=== PATIENT | male | born 1975 | race Caucasian/White ===

== ENCOUNTER 2019-10-27 02:13 | Outpatient (CLI) | payer BC, SELFPAY ==
--- NOTE | 2019-10-27 06:28 | DI.RAD_ITS ---
EXAM: XR HIP PELVIS ADULT BL CLINICAL HISTORY: BILAT HIP PAIN, M25.552, M25.551 TECHNIQUE: COMPARISON: No exams were available for comparison FINDINGS: Three views were obtained. There may be slight narrowing cartilaginous joint spaces of both hips sup eriorly. Minimal acetabular osteophyte formation seen laterally. The femoral heads appear intact bi laterally. No other significant bony abnormality seen. IMPRESSION: Minimal DJD both hips
--- NOTE | 2019-10-27 06:28 | DI.RAD_ITS ---
EXAM: XR KNEE RT 3V AP,LAT,NOVA CLINICAL HISTORY: RT KNEE PAIN, M25.561 TECHNIQUE: COMPARISON: No exams were available for comparison FINDINGS: Three views were obtained. No bony or soft tissue abnormality seen. IMPRESSION:
--- NOTE | 2019-10-27 06:28 | DI.RAD_ITS ---
EXAM: XR KNEE LT 3V AP,LAT,NOVA CLINICAL HISTORY: LT KNEE PAIN, M25.562 TECHNIQUE: COMPARISON: XR KNEE RT 3V AP,LAT,NOVA from 10/27/2019 FINDINGS: Three views were obtained. No bony or soft tissue abnormality seen. IMPRESSION:
== END 2019-10-27 02:33 ==
PROVIDERS: PCP Nurse Practitioner Family; Visit Provider Nurse Practitioner Family
DX: M25.552 Pain in left hip (principal); M25.551 Pain in right hip; M16.0 Bilateral primary osteoarthritis of hip; M25.562 Pain in left knee; M25.561 Pain in right knee
CPT/HCPCS: 73521; 73562

== ENCOUNTER 2019-11-07 02:34 | Outpatient (CLI) | payer BC, SELFPAY ==
[2019-11-07 07:17] LABS: Abs Immature Grans 0.01 k/cumm (0.0-0.09); Absolute Basophil Count 0.01 k/cumm (0.0-0.2); Absolute Eosinophil Count 0.14 k/cumm (0.0-0.7); Absolute Lymphocyte Count 2.92 k/cumm (1.2-3.4); Absolute Monocyte Count 0.59 k/cumm (0.11-0.7); Absolute Neutrophil Count 3.03 k/cumm (1.2-6.7); Basophils % 0.1; Eosinophils % 2.1; HCT 45.2 % (40.0-50.0); HGB 15.7 g/dL (13.5-17.5); Immature Grans % 0.1 %; Lymphocytes % 43.6; Mean Corp. HGB Concentration 34.7 g/dL (32.0-36.0); Mean Corpuscular Hemoglobin 29.8 pg (27.0-33.0); Mean Corpuscular Volume 85.8 fL (80-95); Mean Platelet Volume 9.1 fL (8.0-11.0); Monocytes % 8.8; Neutrophils % 45.3; Platelet Count 260 x1000/uL (130-400); RBC 5.27 m/cumm (4.50-6.00); RBC Distribution Width 12.8 % (11.8-14.1)
[2019-11-07 07:35] LABS: Hemoglobin A1C 5.5 % (3.8-5.6)
[2019-11-07 08:53] LABS: ALT 23 U/L (16-63); AST 14 U/L (15-37); Alkaline Phosphatase 131 U/L (46-116); Anion Gap 9.9 mmol/L (3-11); BUN 21 mg/dL (7-18); Bilirubin, Total 0.4 mg/dL (0.2-1.0); CO2 27.1 mmol/L (21.0-32.0); CREATININE 1.11 mg/dL (0.70-1.30); Calculated LDL 148 mg/dL (<100); Chloride 102 mmol/L (98-107); Cholesterol 219 mg/dL (<200); Glucose 111 mg/dL (74-106); HDL Cholesterol 42 mg/dL (40-60); Potassium 4.7 mmol/L (3.5-5.1); Sodium 139 mmol/L (136-145); TSH 2.92 uIU/mL (0.36-3.74); Total Protein 7.3 g/dL (6.4-8.2); Triglyceride 147 mg/dL (<150)
[2019-11-07 09:10] LABS: FREE T4 1.09 ng/dL (0.76-1.46)
[2019-11-09 10:21] LABS: GGT 26 U/L (15-85)
[2019-11-10 04:42] LABS: Vitamin D 25 Total 14.3 ng/ml (30-100)
== END 2019-11-07 02:54 ==
PROVIDERS: PCP Nurse Practitioner Family; Visit Provider Nurse Practitioner Family
DX: Z00.00 Encounter for general adult medical examination without abnormal findings (principal); Z13.220 Encounter for screening for lipoid disorders; Z13.1 Encounter for screening for diabetes mellitus; Z13.29 Encounter for screening for other suspected endocrine disorder; R74.8 Abnormal levels of other serum enzymes
CPT/HCPCS: 36415; 80053; 80061; 82306; 82977; 83036; 83970; 84439; 84443; 85025

== ENCOUNTER 2020-10-23 12:02 | Outpatient (REF) | payer BC, SELFPAY ==
[2020-10-24 12:42] LABS: Chlamydia Result Negative (Negative); GC Result Negative (Negative)
== END 2020-10-23 12:03 | disposition home or self-care (01) ==
LOC: LBN 12:02
PROVIDERS: Nurse Practitioner; PCP Nurse Practitioner Family; Visit Provider Nurse Practitioner Family
DX: Z11.3 Encounter for screening for infections with a predominantly sexual mode of transmission (principal)
CPT/HCPCS: 87491; 87591

== ENCOUNTER 2020-10-29 04:19 | Outpatient (CLI) | payer BC, SELFPAY ==
[2020-10-29 12:38] LABS: Abs Immature Grans 0.01 10^3/uL (0.0-0.06); Absolute Basophil Count 0.02 10^3/uL (0.0-0.2); Absolute Eosinophil Count 0.01 10^3/uL (0.0-0.7); Absolute Monocyte Count 0.37 10^3/uL (0.1-0.8); Basophils % 0.6; Eosinophils % 0.3; HCT 47.6 % (40.0-50.0); HGB 15.9 g/dL (13.5-17.5); Immature Grans % 0.3; Lymphocytes % 30.5; MCH 29.8 pg (27.0-33.0); MCHC 33.4 % (32.0-36.0); MCV 89.3 fL (80-95); MPV 9.8 fL (8.0-11.0); Monocytes % 10.2; Neutrophils % 58.1; Nucleated RBC 0 %; Platelet Count 260 10^3/uL (130-400); RBC 5.33 10^6/uL (4.36-5.78); RDW 12.6 % (11.8-14.1); WBC 3.61 10^3/uL (4.4-10.8)
[2020-10-29 13:04] LABS: ALT 33 U/L (16-63); AST 20 U/L (15-37); Albumin 4.3 g/dL (3.4-5.0); Alkaline Phosphatase 74 U/L (46-116); BUN 22 mg/dL (7-18); Bilirubin, Total 0.6 mg/dL (0.2-1.0); CREATININE 1.1 mg/dL (0.70-1.30); Calcium 9.2 mg/dL (8.5-10.1); Chloride 102 mmol/L (98-107); Glucose 116 mg/dL (74-106); Potassium 4.2 mmol/L (3.5-5.1); Sodium 142 mmol/L (136-145); TSH (W/Ref FT4) 1.13 uIU/mL (0.36-3.74); Total Protein 7.3 g/dL (6.4-8.2)
[2020-10-30 09:58] LABS: HIV-1/2 Ag & Ab Screen Negative (Negative)
[2020-10-30 11:05] LABS: Syphilis Serology (RPR) Negative (Negative)
[2020-10-30 14:54] LABS: Hepatitis Be Antigen Negative (Negative)
[2020-10-31 18:43] LABS: Calculated LDL 85 mg/dL (<100); Cholesterol 145 mg/dL (<200); HDL Cholesterol 48 mg/dL (40-60); Triglyceride 62 mg/dL (<150)
[2020-10-31 20:40] LABS: Hemoglobin A1C 5.2 % (<5.7)
[2020-11-01 04:38] LABS: Vitamin D 25 Total 63.3 ng/mL (30-100)
[2020-11-01 10:33] LABS: Hepatitis C Ab w Rflx HCV PCR Negative (Negative)
== END 2020-10-29 04:20 | disposition home or self-care (01) ==
LOC: LOS 04:20
PROVIDERS: PCP Nurse Practitioner Family; Visit Provider Nurse Practitioner
DX: R73.01 Impaired fasting glucose (principal); R63.4 Abnormal weight loss; E78.5 Hyperlipidemia, unspecified; E55.9 Vitamin D deficiency, unspecified; Z11.3 Encounter for screening for infections with a predominantly sexual mode of transmission; Z11.4 Encounter for screening for human immunodeficiency virus [HIV]; Z11.59 Encounter for screening for other viral diseases
CPT/HCPCS: 36415; 80053; 80061; 82306; 86803; 87389; 83036; 84443; 85025; 86592; 87350

== ENCOUNTER 2021-05-27 14:58 | Outpatient (REF) | payer BC, SELFPAY ==
[2021-05-27 15:54] LABS: Abs Immature Grans 0.03 10^3/uL (0.0-0.06); Absolute Basophil Count 0.02 10^3/uL (0.0-0.2); Absolute Eosinophil Count 0.08 10^3/uL (0.0-0.7); Absolute Lymphocyte Count 2.43 10^3/uL (1.2-3.4); Absolute Monocyte Count 0.49 10^3/uL (0.1-0.8); Absolute Neutrophil Count 3.74 10^3/uL (1.2-6.7); Basophils % 0.3; Eosinophils % 1.2; HCT 40.7 % (40.0-50.0); HGB 13.8 g/dL (13.5-17.5); Immature Grans % 0.4; Lymphocytes % 35.8; MCH 30.1 pg (27.0-33.0); MCHC 33.9 % (32.0-36.0); MCV 88.7 fL (80-95); MPV 8.9 fL (8.0-11.0); Monocytes % 7.2; Neutrophils % 55.1; Nucleated RBC 0 %; Platelet Count 266 10^3/uL (130-400); RBC 4.59 10^6/uL (4.36-5.78); RDW 12.5 % (11.8-14.1); RDW-SD 40.5 fL; WBC 6.79 10^3/uL (4.4-10.8)
[2021-05-27 16:12] LABS: ALT 32 U/L (16-63); AST 18 U/L (15-37); Albumin 3.7 g/dL (3.4-5.0); Alkaline Phosphatase 91 U/L (46-116); Anion Gap 6.3 mmol/L (3-11); BUN 22 mg/dL (7-18); Bilirubin, Total 0.3 mg/dL (0.2-1.0); CO2 30.7 mmol/L (21.0-32.0); Chloride 105 mmol/L (98-107); Glucose 90 mg/dL (74-106); Potassium 3.9 mmol/L (3.5-5.1); Sodium 142 mmol/L (136-145)
== END 2021-05-27 14:59 | disposition home or self-care (01) ==
LOC: LBN 14:58
PROVIDERS: PCP Nurse Practitioner Family; Visit Provider Surgery
DX: K40.90 Unilateral inguinal hernia, without obstruction or gangrene, not specified as recurrent (principal); K42.9 Umbilical hernia without obstruction or gangrene
CPT/HCPCS: 80053; 85025

== ENCOUNTER 2021-06-17 02:53 | Outpatient (CLI) | payer BC, SELFPAY ==
[2021-06-17 10:30] LABS: Source Nasal/Nares
[2021-06-17 13:55] LABS: COVID-19 PCR Negative (Negative)
== END 2021-06-17 02:54 | disposition home or self-care (01) ==
LOC: LBO 02:53
PROVIDERS: PCP Nurse Practitioner Family; Visit Provider Surgery
DX: Z20.822 Contact with and (suspected) exposure to COVID-19 (principal); Z01.818 Encounter for other preprocedural examination
CPT/HCPCS: 87635

== ENCOUNTER 2021-06-18 06:58 | Day surgery (SDC) | payer BC, SELFPAY ==
[2021-06-18] VITALS (8 sets, daily range): BP systolic 115–138; BP diastolic 66–86; PULSE 60–74; RESP 13–18; TEMP 36.2–37.2; O2SAT 96–100; BMI 24.3
--- NOTE | 2021-06-18 06:21 | W.ANESPRE ---
General Info Date of Service Date Performed: 06/18/21 Height: 5 ft 7.5 in Weight: 71.384 kg Body Mass Index (BMI): 24.3 Surgical Procedure: Operation Date: 06/18/21 08:55 Proposed Procedures Side Surgeon p small Herniorrhaphy Umbilical Repair with mesh Stormy Cortes DO s Large open Herniorrhaphy Inguinal with mesh Right Stormy Cortes DO Meds Allergies and Home Medications Allergies Allergy/AdvReac Type Severity Reaction Status Date / Time No Known Allergies Allergy Verified 06/18/21 07:15 Home Medication Medication Instructions Recorded cholecalciferol (vitamin D3) 50 2,000 unit PO DAILY #90 tab-cap 11/10/19 mcg (2,000 unit) capsule multivitamin with iron 1 tab PO DAILY 12/13/20 protein pwd PO 12/13/20 antiarthritic combination no.2 900 900 mg PO DAILY 05/27/21 mg tablet tramadol 50 mg PO Q6H PRN #14 tab 06/18/21 Current Visit Medications: Current Medications Generic Name Dose Route Start Last Admin Trade Name Freq PRN Reason Stop Dose Admin Ondansetron HCl 4 mg/ Sodium 52 mls @ 200 mls/hr 06/17/21 10:41 Chloride IVPB Q6H PRN PRN Morphine Sulfate 2 mg 06/17/21 10:41 Morphine 4 Mg/Ml Syr IVP Q1H PRN PRN Tramadol HCl 50 mg 06/17/21 10:41 Tramadol 50 Mg Tab PO Q6H PRN PRN Pain PFSH Active Problems Active Problems: Problem Status Onset Code Umbilical hernia K42.9 Reducible right inguinal hernia K40.90 Medical History Active Problem List Umbilical hernia (Chronic) Reducible right inguinal hernia (Chronic) Medical History Basal cell carcinoma (BCC) of scalp (11/2019) November 2019 s/p excision Hyperlipidemia Vitamin D insufficiency Surgical History Surgical History S/P foot surgery Clubfoot repair S/P tonsillectomy Tobacco Smoking/Tobacco Use Status: Never Passive smoking exposure: Yes Second hand exposure: Yes (as a child (to age 17)) Alcohol Alcohol Intake: current Alcohol intake frequency: a few times a month Alcohol type: beer and hard liquor Substance Use Substance use: Never Substance use type: does not use Vital Signs and Lab Results Lab Results Blood Type / Crossmatch: No Data to Display Complete Blood Count: White Blood Count 6.79 10^3/uL (4.4-10.8) 05/27/21 14:05 05/27/21 Red Blood Count 4.59 10^6/uL (4.36-5.78) 05/27/21 14:05 05/27/21 Hemoglobin 13.8 g/dL (13.5-17.5) 05/27/21 14:05 05/27/21 Hematocrit 40.7 % (40.0-50.0) 05/27/21 14:05/27/21 Platelet Count 266 10^3/uL (130-400) 05/27/21 14:05 05/27/21 Complete Metabolic Panel: Sodium Level 142 mmol/L (136-145) 05/27/21 14:05/27/21 Potassium Level 3.9 mmol/L (3.5-5.1) 05/27/21 14:05 05/27/21 Chloride Level 105 mmol/L (98-107) 05/27/21 14:05 05/27/21 Carbon Dioxide Level 30.7 mmol/L (21.0-32.0) 05/27/21 14:05 05/27/21 Blood Urea Nitrogen 22 mg/dL (7-18) H 05/27/21 14:05 05/27/21 Creatinine 1.0 mg/dL (0.70-1.30) 05/27/21 14:05 05/27/21 Estimated GFR/1.73 m2 >= 60.00 (mL/min/1.73m2) 05/27/21 14:05 05/27/21 Calcium Level 9.0 mg/dL (8.5-10.1) 05/27/21 14:05/27/21 Albumin 3.7 g/dL (3.4-5.0) 05/27/21 14:05 05/27/21 Glucose Level 90 mg/dL (74-106) 05/27/21 14:05 05/27/21 Liver Function Panel: Alanine Aminotransferase (ALT/SGPT) 32 U/L (16-63) 05/27/21 14:05 05/27/21 Aspartate Amino Transf (AST/SGOT) 18 U/L (15-37) 05/27/21 14:05 05/27/21 Coagulation Panel: No Data to Display Cardiac Panel: No Data to Display Arterial Blood Gas: No Data to Display Venous Blood Gas: No Data to Display Pancreas Panel: No Data to Display Thyroid Panel: No Data to Display Infectious Disease: Coronavirus (COVID-19)(PCR) Negative (Negative) 06/17/21 08:39 06/17/21 Coronavirus 2019 Source Nasal/Nares 06/17/21 08:39 06/17/21 Blood Cultures: No Data to Display Toxicology Panel: No Data to Display Anesthesia Assessment and Plan Anesthesia History Personal History: No History of Anesthesia Complications Family History: No Family History of Anesthesia Complications Exercise Tolerance Exercise Tolerance: Metabolic Equivalents>4 Pertinent Negatives Pertinent Negatives: No Symptoms of GERD, No Major Cardiovascular Symptoms or Complaints, No Major Pulmonary Symptoms or Complaints and No History of CVA/TIA Cardiac & Pulmonary Exam Cardiac Exam: Normal S1/S2 Heart Sounds Pulmonary Exam: Clear Bilateral Breath Sounds Implantable Cardiac Device Does patient have a Pacemaker or an ICD?: No Airway Exam Known Difficult Airway: No Mallampati Class: 2 Mouth Opening: Normal (> 3cm) Thyromental Distance: Greater than 3 cm Neck Range of Motion: Full ROM Neck Circumference: Normal Teeth Condition: Normal Dentition ASA Classification ASA Score: ASA 2 Emergency Case?: No NPO Status NPO Status: NPO Clears >2 hours, Solids >8 hours Anesthesia Plan Resuscitation Status: Full Code Anesthesia Technique: General Anesthesia Airway Planned: LMA Pain Management: Surgeon and patient request nerve block Monitors Used: Standard Monitors Preoperative Comments:: 46 yo male for hernia repair. Sig PMHx: Denies, occ EtOH, never smoker.
[2021-06-18] MEDS: Gabapentin 300 MG CAP PO (08:05)
[2021-06-18] MEDS: Acetaminophen 500 MG TAB 1000 MG PO (08:06)
[2021-06-18] MEDS: Lactated Ringers 1,000 ML 80 ML IV (08:07)
[2021-06-18] MEDS: ceFAZolin 2 GM/50 ML BAG IVPB (09:24)
--- NOTE | 2021-06-18 09:27 | W.PM.OP ---
Date of service: 06/18/21 Time of Service: 09:27 Operative Note Operative Note DATE OF PROCEDURE: 06/18/21 PRE-OP DIAGNOSIS: umbilical hernia/lg right inguinal hernia POST-OP DIAGNOSIS: same (hydrocele) PROCEDURE: open umbilical hernia w/ mesh open right indirect inguinal hernia repair w/ mesh and hydrocele repair SURGEON: Stormy Mohamud MUSICAL INSTRUMENT MECHANIC: Mimi Garcia ANESTHESIA TYPE: Local By Surgeon, General LMA/ETT and Primary Nerve Block Refer to Anesthesia Record ESTIMATED BLOOD LOSS: 20 PATHOLOGY: none sent COMPLICATIONS: None Patient was transported to: PACU Patient's condition: stable Procedure Description: INDICATIONS: The pt is here today for surgery regarding symptomatic right inguinal hernia & umbilical hernia and he is here today for repair. Informed consent was obtained, explaining risks and benefits of the procedure including but not limited to bleeding, infection, pneumonia, blood clots, chronic pain, chronic numbness, damage to testicle resulting in removal, recurrence of hernia, reaction to Mesh necessitating removal, and other unforetold complications, and complications of anesthesia-which were addressed by the PRECIPITATION EQUIPMENT TENDER. The patient is marked in preOp prior to the procedure The patient was brought to the operating suite and placed in supine position. Anesthesia was administered per the Department of Anesthesia. Nerve blocks are done per anethesia. Patient is than prepped and draped in the usual sterile fashion using DuraPrep scrub solution. IV antibiotics were administered. Pause for the cause was done. He does have a small umbilical hernia he would like repaired as well. This is attended to first. 20cc of .25% Marcaine is used for local anesthetic. A 1-inch incision was made in the inferiorly to the umbilicus. Umbilicus was dissected off the fascia. The surrounding tissue is dissected off the fascia. Omentum is protruding through the defect. This was returned to the abdomen. It is not infarcted. A small Kerlix patch was then placed in the defect, the defect was closed, over sewn with 2-0 vicryl and was copiously irrigated. Deep tissue was approximated with 3-0 Vicryl and skin was approximated with 4-0 Monocryl in a running subcuticular fashion. Skin glue was applied The right inguinal hernia is attended to next. 30 mL of .25% Marcaine w/ epinephrine was used for local anesthetization. A #12 blade was used to make an incision over the external ring. Electrocautery used to provide hemostasis and dissect down to the fascia. The fascia was pretty much obliterated and there was nothing to open. The cord is elevated. The nerve was not identified. There is no a cord lipomas. This is obviously a large congeintal hernia. The sack extends down to the testicle. It is intimately adhered to the cord structures. He also has a hydrocele. Electro-cautery is used to provide hemostasis. A Sara drain was placed around the cord to assist in mobilization. The cord was explored. There was is larhe hernia sac on the cord. There is no direct hernia pushing through the floor. The hernia sac is dissected off the cord using a combination of blunt dissection and electrocautery. Electrocautery is used to provide hemostasis. There are no contents within the hernia sac. The testicle was delivered up through the scrotum. The hydrocele is opened and repaired in a standard layered fashion using 2-0 chromic. The hernia sac extends down to the testicle. It is intimately adhered to the testicle and cord structures. Tedious but meticulous dissection was carried out to excise the sac. The sac is almost 8 inches in length it is dissected off of the cord structures. The sac is opened there are no contents within it. High ligation of the sac is then done and the sac is excised. Is tied off with a 2-0 Vicryl return to the abdominal cavity. The hernia sac is than inverted and returned to the abdominal cavity. A XL size plug is than inserted into the defect through the internal ring, and over sewn to tighten up the ring with 2-0 vicryl. Please see RN notes from Lot number of the Bard mesh patch/plug. The cord structures are still able to freely move through the ring itself. The patch was then placed onto the floor, and using 2-0 Vicryl, sewn into the pubic tubercle and the shelving portions of the inguinal ligament, in the standard Lichenstein fashion. The tails of the mesh are brought around the cord, sewn together w/ 2-0 Vicryl, and tucked under the external oblique. The wound was copiously irrigated. There was no bleeding noted. The drain was removed. All structures are returned to normal anatomical position. The nerve is not sewn into the mesh, nor caught up in any sutures. The external oblique is re-approximated using 2-0 vicryl in a running fashion. Deep tissue was approximated with 3-0 Vicryl in a running fashion, and skin was approximated with 4-0 Monocryl in a running subcuticular fashion. Skin glue and sterile dressings are applied. Scrotal support is placed on the patient. the patient tolerated the procedure without complications to recovery in stable condition. The patient is advised that he is going to have significant bruising and swelling because of the extent of the hernia and he should ice, wear his scrotal support continuously, and use ibuprofen continuously to help decrease swelling. STORMY MOHAMUD, DO
--- NOTE | 2021-06-18 09:30 | W.PM.DSUDISC ---
Discharge Plan Disposition Patient Disposition: HOME Condition: Good Discharge Details Reason For Visit: hernia repair x2 Attending Provider: Stormy Cortes Primary Care Provider: Nancy Elizondo Home Meds and New Rx's Prescriptions: New tramadol 50 mg tablet 50 mg PO Q6H PRNQty: 14 RF: 0 Continued multivitamin with iron [Daily Multiple Vitamins/Iron] Tablet 1 tab PO DAILY RF: 0 protein [Boost High Protein] Powder PO RF: 0 glucosamine-chondroitin 900 mg tablet 900 mg PO DAILY RF: 0 cholecalciferol (vitamin D3) 50 mcg (2,000 unit) capsule 2,000 unit PO DAILY Qty: 90 RF: 4 Discharge Instructions Additional Instructions: Dr. Cortes HERNIA REPAIR ? POSTOPERATIVE INSTRUCTIONS Patients who have this type of surgery can usually be expected to return to work within two weeks and have minimal amounts of discomfort. ? ACTIVITY: The day of surgery should be spent resting. However, you can be up for short periods of time, I.E., going to the bathroom or kitchen. Avoid lifting or straining. On the day following surgery, you can be up and about as desired. ? LIFTING: Restrict your lifting to no more than five (5) pounds for the first week following surgery. For the second week after surgery, don?t lift more than 5 pounds. We will decide when you are done with restrictions and when you can return to work, at your follow-up appointment. No sexual activity for two weeks. ? DIET: There are no dietary restrictions following surgery. However, you may want to start with small amounts of liquids to avoid nausea the day of surgery. ? INCISION CARE: You will notice purple skin glue closing the incision. Do not peel this off- it will wear off on its own. After 24 hours you may shower. The dressing may be replaced for comfort, but is not necessary. An ice bag may be applied to the incision for 72 hours following surgery. ? SIGNS OF INFECTION: It is not unusual to have some black and blue discoloration of the skin around the incision, but also scrotum and penis. It will slowly disappear. If you have any increased redness, drainage, fever (above 100 degrees), please contact your doctor for an examination. ? DISCOMFORT: You may expect to have some mild discomfort at the incision sight. If severe pain develops you should contact your doctor for further instructions. ? URINATION: Patients who have surgery occasionally have problems urinating. If you experience problems and are not able to urinate within 6 hours following your surgery, please call your doctor immediately or go to your nearest Emergency Room for evaluation. ? DRIVING: NO driving for three (3) days after surgery, or if you are still taking narcotic pain medication. ? MEDICATIONS: Alternate Tylenol 1000mg by mouth every 8 hours and Ibuprofen 600mg every 6 hours. Make sure you take ibuprofen with food and not on an empty stomach. Take the Tylenol and ibuprofen continuously for the first 72hrs- not just when you have pain. Use the tramadol for breakthrough pain. Use ICE! Twenty minutes on, and then off, continuously for the first 72hours. If you are taking narcotic pain medication, follow the instructions on the label and do not drive. Pain medications can make you very constipated. Make sure you are moving your bowels daily. If not, take Miralax, milk of magnesia or magnesium citrate. Anesthesia makes you very constipated. Take a dose of milk of magnesia the morning after surgery. ? REPORT: Unusual swelling, severe pain, unresolved nausea, signs of infection, or difficulty in urination to your surgeon. Follow up in clinic with Dr. Cortes in 2 weeks. [phone] -expect to have significant swelling and bruising. Where scrotal support continuously. Activity:: see above Remove Dressings/Wound Care:: 24 hours Shower/Bathe:: 24 hours Diet:: As Tolerated Discharge Orders Discharge Orders: Discharge Order (Routine); Ordered 06/17/21 Ordered By: Stormy Cortes DS: Diagnosis Discharge Diagnosis (1) Umbilical hernia: Status: Chronic (2) Reducible right inguinal hernia: Status: Chronic
--- NOTE | 2021-06-18 10:18 | W.ANESNERVE ---
Nerve Block Single Injection Procedure Date and Time Date Performed: 06/18/21 Procedure Start: 09:30 Location Where Procedure Performed Procedure Location: Operating Room Procedure Stop: 09:40 Reason Performed: Postoperative Analgesia Requesting Provider: Stormy Cortes Timeout Performed Timeout Performed: Yes Monitoring Used ECG, Blood Pressure, SpO2, ETCO2 and See EMR for corresponding vital signs Sterility Sterility: Hand Hygiene, Surgical Cap, Surgical Mask, Sterile Gloves, Eye Protection and Chlorhexidine Sedation Given During Procedure Sedation Given (Indicate Dose Given): Other: Medication/Route/Dose:: patient under GA Patient Mental Status Patient Mental Status: Performed under general anesthesia Nerve Block 1st Nerve Block: Laterality: Right Block Type: TAP Unilateral Needle / Catheter Used: 100mm SonoPlex II Local Anesthetic Bolus (Indicate Dose Given): Injected in 3-5ml increments after negative blood aspiration, Bupivacaine 0.25% Dose:: 15 mL and Exparel Dose:: 10 mL Additives (Indicate Dose Given): None Ultrasound: Sterile probe cover and gel used Ultrasound Image Saved?: Yes Nerve Stimulator: Not Used Paresthesia: None Procedure Tolerated: No Complications Procedure Outcome: Successful Performed By: Gunjan Thomas Supervised By: Phuc Onofre 2nd Nerve Block: Laterality: Bilateral Block Type: Rectus Sheath (Bilateral) Needle / Catheter Used: 100mm SonoPlex II Local Anesthetic Bolus (Indicate Dose Given): None, Injected in 3-5ml increments after negative blood aspiration, Bupivacaine 0.25% Dose:: 30 and Exparel Dose:: 10 mL Additives (Indicate Dose Given): None Ultrasound: Sterile probe cover and gel used Ultrasound Image Saved?: Yes Nerve Stimulator: Not Used Paresthesia: None Procedure Tolerated: No Complications Procedure Outcome: Successful Performed By: Gunjan Thomas Supervised By: Phuc Onofre
[2021-06-18] MEDS: Bupivacaine 0.25% Pres-Free 30 ML VIAL ×2 (11:35→11:36)
--- NOTE | 2021-06-18 12:37 | W.ANESPOSTOP ---
Postoperative Evaluation Date, Time and Location Date Performed: 06/18/21 Time Performed: 12:37 Patient Location: Day Surgery Unit Vital Signs Most Recent Imported Vital Signs: Most Recent Vital Signs Temp Pulse Resp BP Pulse Ox 36.2 C L 62 15 115/69 98 06/18/21 12:17 06/18/21 12:17 06/18/21 12:17 06/18/21 12:17 06/18/21 12:17 Pain Score Most Recent Pain Score: Most Recent Pain Score Pain Level 0 06/18/21 12:17 Assessment Mental Status: Awake (Alert & Oriented to Patient Baseline) Airway and Respiratory Function: Patent airway with normal (patient baseline) respiratory exam Cardiovascular Function: Hemodynamically Stable Hydration Status: Adequately Hydrated Nausea & Vomiting: No Nausea or Vomiting Pain: Pt. Denies Any Pain Peripheral Nerve Block: Regional nerve block not resolved at time of post operative discharge
[2021-06-18] MEDS: traMADol 50 MG TAB PO (13:56)
[2021-06-18] MEDS: Ketorolac 15 MG/ML VIAL IVP (14:38)
== END 2021-06-18 15:00 | disposition home or self-care (01) ==
PROVIDERS: PCP Nurse Practitioner Family; Visit Provider Surgery
PROC: (CPT 49505; principal; 2021-06-18 08:45)
PROC: (CPT 49505; 2021-06-18 08:45)
DX: K42.9 Umbilical hernia without obstruction or gangrene (principal); K40.90 Unilateral inguinal hernia, without obstruction or gangrene, not specified as recurrent; N43.3 Hydrocele, unspecified
CPT/HCPCS: 49505; 49585; 55500; C1781; J0690; J1100; J1885; J2250; J2405

== ENCOUNTER 2021-11-18 16:25 | Outpatient (REF) | payer BC, SELFPAY ==
[2021-11-20 11:52] LABS: COVID-19 RT-PCR UVMMC Result Negative (Negative)
== END 2021-11-18 16:26 | disposition home or self-care (01) ==
LOC: LBN 16:25
PROVIDERS: PCP Nurse Practitioner Family; Visit Provider Nurse Practitioner Family
DX: R09.81 Nasal congestion (principal); Z20.822 Contact with and (suspected) exposure to COVID-19
CPT/HCPCS: U0003

== ENCOUNTER 2022-01-08 08:12 | Day surgery (SDC) | payer BC, SELFPAY ==
--- NOTE | 2022-01-08 06:35 | W.PREOPHP ---
Assessment and Plan Assessment and plan (1) Screening for colon cancer: Status: Acute Assessment and plan: The patient is here for Colonoscopy pre-op. He has no family history of colon cancer. He has not had any bowel habit changes, describing long standing intermittent diarrhea which he correlates to eating gluten. -Discussed colonoscopy bowel prep as well as the procedure. Discussed possible complications of the procedure to include bleeding, pain, perforation, missed small lesion/polyp, sore throat, aspiration and adverse reaction to the medications. Questions were answered to patient?s satisfaction. No guarantees were implied or given.? Reviewed COVID pre-caution's and pre-procedure testing. Patient is scheduled for COVID test. Instructions of testing location were provided. Patient verbalized understanding. I spent? 28? minutes in reviewing the record, seeing the patient, providing patient education, answering patient's questions and documenting in the medical record. P// Colonoscopy under sedation ? History of Present Illness Narrative: 46 y/o male presents for his first colonoscopy screening pre-op. He denies a family history of colon cancer. He denies any changes in bowel habits reporting that he intermittently has diarrhea which has been long standing and he associates this with gluten. Denies bloody or black tarry stools, abdominal pain or constipation. He denies constitutional symptoms. Denies use of marijuana or any other recreational or illegal drugs. He denies chest pain, palpitations, dyspnea or dyspnea with exertion. He denies prior history or family history of adverse reactions or complications with anesthesia. The patient denies any history of stroke, RI, seizures, bleeding or clotting disorders. He denies having any implanted metal in his body. There have been no changes in his health since he was seen in the office in October Review of Systems All systems reviewed & are unremarkable except as noted in HPI and below PFSH All Active Problems Screening for colon cancer (Acute) History of inguinal hernia repair (Acute ~06/18/21) Right, Sto[place] 2020. Also hydrocele repair Medical History Basal cell carcinoma (BCC) of scalp (11/2019) November 2019 s/p excision Hyperlipidemia Umbilical hernia Vitamin D insufficiency Surgical History History of umbilical hernia repair (~06/18/21) S/P foot surgery Clubfoot repair S/P tonsillectomy Family History Mother , age 50 Lung cancer metastatic to brain Alcohol abuse Father , age 62 Bone cancer Brother No problems noted. Brother No problems noted. Sister No problems noted. Sister No problems noted. Maternal Grandfather No problems noted. Maternal Grandmother No problems noted. Paternal Grandfather No problems noted. Paternal Grandmother No problems noted. Social History Smoking/Tobacco Use Status: Never Second Hand Exposure: Yes (as a child (to age 17)) Smoking risk assessment performed?: Yes Alcohol Intake: current Alcohol Intake frequency: a few times a month Alcohol type: beer and hard liquor Drug use: Never Substance use type: does not use Caregiver/Support person: No Household members: none Housing: house Communication Needs: None Do you need help understanding health information?: Often Pets and animals: Yes Pets and animals: cat(s) Sexually active: No Do you think of yourself as: straight/heterosexual Current gender identity: male What is your relationship status?: How often do you talk on the phone with friends or family?: three or more times per week How often do you get together with friends or relatives?: three or more times per week How often do you attend rastafarian or pentecostalism services?: decline to answer Do you belong to any clubs or organized social groups?: yes Panel score (0-1 are the most socially isolated patients): 2 What type of physical activity do you participate in: walking, aerobic and regular exercise Duration: 30-45 minutes/day Frequency: 5-6 times per week Felicia/Zoroastrian: None Special felicia needs: No Seatbelt use: always Drive intox or ride w/intox driver supervisor: No Do you feel safe at home: Yes Do you feel safe in your relationship?: Yes Meds Allergies and Home Medications Allergies Allergy/AdvReac Type Severity Reaction Status Date / Time No Known Allergies Allergy Verified 01/08/22 08:32 Home Medications Medication Instructions Recorded Confirmed Type cholecalciferol (vitamin D3) 50 2,000 unit PO DAILY #90 tab-caps 11/10/19 01/08/22 Rx mcg (2,000 unit) capsule multivitamin with iron (Daily 1 tab PO DAILY 12/13/20 01/08/22 History Multiple Vitamins with Iron tablet) antiarthritic combination no.2 900 900 mg PO DAILY 05/27/21 01/08/22 History mg tablet (glucosamine-chondroitin) bisacodyl 5 mg tablet,delayed 5 mg PO ONCE #4 tabs 10/31/21 01/08/22 Rx release (Dulcolax (bisacodyl)) polyethylene glycol 3350 17 17 g PO ONCE #238 grams 10/31/21 01/08/22 Rx gram/dose oral powder Exam [facility] Head: normocephalic and atraumatic Resp Effort & Inspection: normal respiratory effort Auscultation: clear to auscultation bilaterally Cardio Rate: regular rate Rhythm: regular rhythm Heart Sounds: no gallops, no murmurs and no rubs GI Inspection: normal to inspection Palpation: soft, no hepatosplenomegaly and nontender
--- NOTE | 2022-01-08 06:38 | W.COLOREPORT ---
Colonoscopy Report Date of procedure: 01/08/22 Pre-op diagnosis general: Colon Cancer Screening Post-op diagnosis procedure note: other (mild diverticulosis) Procedure: Colonoscopy Surgeon: Denae Salazar Anesthesia Type: General:No Airway Estimated blood loss (mL): 0 Pathology: none sent Complications: None Disposition: same day Indications: The patient is here for Colonoscopy pre-op. He has no family history of colon cancer. He has not had any bowel habit changes, describing long standing intermittent diarrhea which he correlates to eating gluten. -Discussed colonoscopy bowel prep as well as the procedure. Discussed possible complications of the procedure to include bleeding, pain, perforation, missed small lesion/polyp, sore throat, aspiration and adverse reaction to the medications. Questions were answered to patient?s satisfaction. No guarantees were implied or given.? Reviewed COVID pre-caution's and pre-procedure testing. Patient is scheduled for COVID test. Instructions of testing location were provided. Patient verbalized understanding. I spent? 28? minutes in reviewing the record, seeing the patient, providing patient education, answering patient's questions and documenting in the medical record. P// Colonoscopy under sedation ? Prep: Miralax/Dulcolax Procedure Start Time: 09:54 Procedure End Time: 10:09 Retraction Time: 7 minutes Findings: mild sigmoid diverticulosis Procedure Description: After informed consent was obtained the patient was taken to the procedure room and placed in a left decubitous position. Monitors were applied and a time out was done. The patients name, date of , procedure, allergies to medications and metal in their body was reviewed. The patient was then sedated. Once sedated and comfortable a rectal exam was done. External exam was normal. Internal exam revealed a normal sphincter tone and no palpable masses. The prostate felt smooth. The scope was then introduced and retro-flexed. No internal hemorrhoids, polyps or masses were identified on retro-flexion. The scope was then advanced to the cecum without difficulty. The ileocecal vlave and appendiceal orifice were identified. The prep was good. The scope was then slowly retracted over 7 minutes back into the rectum. There were no polyps. There was mild sigmoid diverticulosis noted. The scope was removed and the patient was woken up and taken back to Same day surgery in stable condition. The patient tolerated the procedure well and there were no immediate complications. Follow up: The patient should follow up in 10 years unless they develop changes in bowel habits or other new gastrointestinal complaints.
--- NOTE | 2022-01-08 06:39 | W.PM.DSUDISC ---
Discharge Plan Disposition Patient Disposition: HOME Condition: Good Discharge Details Reason For Visit: Colonoscopy Attending Provider: Denae Salazar Primary Care Provider: Nancy Elizondo Home Meds and New Rx's Prescriptions: Continued multivitamin with iron [Daily Multiple Vitamins/Iron] Tablet 1 tab PO DAILY glucosamine-chondroitin 900 mg tablet 900 mg PO DAILY cholecalciferol (vitamin D3) 50 mcg (2,000 unit) capsule 2,000 unit PO DAILY Qty: 90 4RF Discontinued bisacodyl [Dulcolax (bisacodyl)] 5 mg tablet,delayed release (DR/EC) 5 mg PO ONCE Qty: 4 0RF Rx Instructions: Take according to provider's instructions for colonoscopy prep. polyethylene glycol 3350 17 gram/dose powder 17 g PO ONCE Qty: 238 0RF Rx Instructions: To be taken as directed by prescriber's office for colonoscopy prep. Discharge Instructions Instructions: Diverticulosis (DC) Additional Instructions: Findings: mild diverticulosis Follow up: 10 years Please call if you develop: fevers >101.5 Nausea or Vomiting Abdominal pain that is not transient Rectal bleeding that is more then a tbsp A hard abdomen and inability to pass gas DAY SURGERY UNIT POST ENDOSCOPY INSTRUCTIONS Instructions for everyone who is given Anesthesia: For your safety, please do the following for the next 24 Hours: a. Do not drive or operate dangerous equipment b. Do not drink alcohol beverages or use any recreational drugs for the first 24 hours or while taking pain medications. The medications in your body may have a reaction that can be dangerous. c. Do not make any important decisions or sign any important papers 1. Generally there are no restrictions on your activity after a day or so has gone by, but you may feel a bit fatigued for a few days. 2. After you arrive home you may have a light meal and return to a normal diet as you can tolerate it without feeling sick to your stomach. 3. After surgery, you may feel pain or discomfort. This should be only transient, but if it persists please contact your doctor. 4. If there are any questions regarding the findings of your procedure, please feel free to contact your doctor. 6. If you are unable to contact your doctor with a problem, contact the hospital at [phone]. 7. Continue all your regular medications unless directed otherwise. I understand the above instructions and have no questions. Signature of Patient or Responsible Adult Escort Date/Time Name of Responsible Adult Escort Signature of Nurse Date/Time Activity:: Activity as Tolerated Diet:: high fiber Discharge Orders Discharge Orders: Discharge Order (Routine); Ordered 01/08/22 Ordered By: Denae Salazar DS: Diagnosis Discharge Diagnosis (1) Screening for colon cancer: Status: Acute
[2022-01-08 08:37] VITALS: BP 110/85; PULSE 72; RESP 16; TEMP 36.1; O2SAT 97
--- NOTE | 2022-01-08 08:48 | ANES.PREOP_ITS ---
General Info Date of Service Date Performed: 01/08/22 Height: 5 ft 8 in Weight: 73 kg Body Mass Index (BMI): 24.5 Surgical Procedure: Operation Date: 01/08/22 10:05 Proposed Procedure Side Surgeon p Colonoscopy Denae Salazar MD Meds Allergies and Home Medications Allergies Allergy/AdvReac Type Severity Reaction Status Date / Time No Known Allergies Allergy Verified 01/08/22 08:32 Home Medication Medication Instructions Recorded cholecalciferol (vitamin D3) 50 2,000 unit PO DAILY #90 tab-caps 11/10/19 mcg (2,000 unit) capsule multivitamin with iron (Daily 1 tab PO DAILY 12/13/20 Multiple Vitamins with Iron tablet) antiarthritic combination no.2 900 900 mg PO DAILY 05/27/21 mg tablet (glucosamine-chondroitin) bisacodyl 5 mg tablet,delayed 5 mg PO ONCE #4 tabs 10/31/21 release (Dulcolax (bisacodyl)) polyethylene glycol 3350 17 17 g PO ONCE #238 grams 10/31/21 gram/dose oral powder Current Visit Medications: Current Medications Generic Name Dose Route Start Last Admin Trade Name Freq PRN Reason Stop Dose Admin Hyoscyamine Sulfate 0.125 mg 01/08/22 06:39 Hyoscyamine 0.125 Mg Sl/Oral/Chew SL DIRECTED PRN Ringer's Solution 1,000 mls @ 80 mls/hr 01/08/22 06:00 IV 02/06/22 23:59 [facility] IV Miscellaneous Supplies 1 each 01/08/22 06:00 Iv Access IV 02/06/22 23:59 DIRECTED FARHAD Ondansetron HCl 4 mg 01/08/22 06:39 Ondansetron 4 Mg/2 Ml Vial IVP Q4H PRN PRN Nausea / Vomiting Sodium Chloride 0 ml 01/08/22 06:00 Normal Saline Flush 10 Ml Syr IV 02/06/22 23:59 PRN PRN Sodium Chloride 0 ml 01/08/22 06:00 Normal Saline 10 Ml Vial IJ 02/06/22 23:59 DIRECTED PRN Sterile Water 0 ml 01/08/22 06:00 Water,Injection,Sterile 10 Ml Vial IJ 02/06/22 23:59 DIRECTED PRN PFSH Active Problems Active Problems: Problem Status Onset Code Screening for colon cancer Z12.11 History of inguinal hernia repair ~06/18/21 Z98.890, Z87.19 Medical History Medical History Basal cell carcinoma (BCC) of scalp (11/2019) November 2019 s/p excision Hyperlipidemia Umbilical hernia Vitamin D insufficiency Surgical History Surgical History History of umbilical hernia repair (~06/18/21) S/P foot surgery Clubfoot repair S/P tonsillectomy Tobacco Smoking/Tobacco Use Status: Never Passive smoking exposure: Yes Second hand exposure: Yes (as a child (to age 17)) Alcohol Alcohol Intake: current Alcohol intake frequency: a few times a month Alcohol type: beer and hard liquor Substance Use Substance use: Never Substance use type: does not use Vital Signs and Lab Results Vital Signs Most Recent Vital Signs in EMR: Most Recent Vital Signs Temp Pulse Resp BP Pulse Ox 36.1 C L 72 16 110/85 97 01/08/22 08:37 01/08/22 08:37 01/08/22 08:37 01/08/22 08:37 01/08/22 08:37 Lab Results Blood Type / Crossmatch: No Data to Display Complete Blood Count: No Data to Display Complete Metabolic Panel: No Data to Display Liver Function Panel: No Data to Display Coagulation Panel: No Data to Display Cardiac Panel: No Data to Display Arterial Blood Gas: No Data to Display Venous Blood Gas: No Data to Display Pancreas Panel: No Data to Display Thyroid Panel: No Data to Display Infectious Disease: No Data to Display Blood Cultures: No Data to Display Toxicology Panel: No Data to Display Anesthesia Assessment and Plan Anesthesia History Personal History: No History of Anesthesia Complications Family History: No Family History of Anesthesia Complications Exercise Tolerance Exercise Tolerance: Metabolic Equivalents>4 Pertinent Negatives Pertinent Negatives: No Symptoms of GERD, No Major Cardiovascular Symptoms or Complaints, No Major Pulmonary Symptoms or Complaints and No History of CVA/TIA Cardiac & Pulmonary Exam Cardiac Exam: Normal S1/S2 Heart Sounds Pulmonary Exam: Clear Bilateral Breath Sounds Implantable Cardiac Device Does patient have a Pacemaker or an ICD?: No Airway Exam Known Difficult Airway: No Mallampati Class: 2 Mouth Opening: Normal (> 3cm) Thyromental Distance: Greater than 3 cm Neck Range of Motion: Full ROM Neck Circumference: Normal Teeth Condition: Normal Dentition Airway Comments: High Angle narrow palate Misaligned top teeth #21 capped ASA Classification ASA Score: ASA 2 Emergency Case?: No NPO Status NPO Status: NPO Clears >2 hours, Solids >8 hours Anesthesia Plan Resuscitation Status: Full Code Anesthesia Technique: General Anesthesia Airway Planned: Natural Airway Monitors Used: Standard Monitors Preoperative Comments:: 46 yo male for colonoscopy, previous hernia repair here. Sig PMHx: Denies, occ EtOH, never smoker.
[2022-01-08] MEDS: Lactated Ringers 1,000 ML 80 ML IV (08:56)
[2022-01-08 09:24] VITALS: BMI 24.5
[2022-01-08 10:16] VITALS: BP 113/79; PULSE 61; RESP 16; TEMP 36.6; O2SAT 96
[2022-01-08 10:45] VITALS: BP 115/79; PULSE 66; RESP 16; TEMP 36.7; O2SAT 98
--- NOTE | 2022-01-08 11:14 | W.ANESPOSTOP ---
Postoperative Evaluation Date, Time and Location Date Performed: 01/08/22 Time Performed: 11:15 Patient Location: Day Surgery Unit Vital Signs Most Recent Imported Vital Signs: Most Recent Vital Signs Temp Pulse Resp BP Pulse Ox 36.7 C 66 16 115/79 98 01/08/22 10:45 01/08/22 10:45 01/08/22 10:45 01/08/22 10:45 01/08/22 10:45 Pain Score Most Recent Pain Score: Most Recent Pain Score Pain Level 0 01/08/22 10:45 Assessment Mental Status: Awake (Alert & Oriented to Patient Baseline) Airway and Respiratory Function: Patent airway with normal (patient baseline) respiratory exam Cardiovascular Function: Hemodynamically Stable Hydration Status: Adequately Hydrated Nausea & Vomiting: No Nausea or Vomiting Pain: Pt. Denies Any Pain Peripheral Nerve Block: Patient did not receive a nerve block
== END 2022-01-08 11:08 | disposition home or self-care (01) ==
PROVIDERS: PCP Nurse Practitioner Family; Visit Provider Surgery
PROC: 0DJD8ZZ Inspection of Lower Intestinal Tract, Via Natural or Artificial Opening Endoscopic (ICD-10-PCS; CPT 45378; principal; 2022-01-08 10:00)
DX: Z12.11 Encounter for screening for malignant neoplasm of colon (principal); K57.30 Diverticulosis of large intestine without perforation or abscess without bleeding
CPT/HCPCS: 45378

== ENCOUNTER 2023-04-28 13:06 | Outpatient (CLI) | payer BC, SELFPAY ==
[2023-04-28 14:21] LABS: Abs Immature Grans 0.02 10^3/uL (0.0-0.06); Absolute Basophil Count 0.03 10^3/uL (0.0-0.2); Absolute Eosinophil Count 0.05 10^3/uL (0.0-0.7); Absolute Lymphocyte Count 1.78 10^3/uL (1.2-3.4); Absolute Monocyte Count 0.59 10^3/uL (0.1-0.8); Absolute Neutrophil Count 4.81 10^3/uL (1.2-6.7); Basophils % 0.4; Eosinophils % 0.7; HCT 42.1 % (40.0-50.0); HGB 14.4 g/dL (13.5-17.5); Immature Grans % 0.3; Lymphocytes % 24.5; MCH 29.1 pg (27.0-33.0); MCHC 34.2 % (32.0-36.0); MCV 85 fL (80-95); MPV 8.8 fL (8.0-11.0); Monocytes % 8.1; Platelet Count 256 10^3/uL (130-400); RBC 4.94 10^6/uL (4.36-5.78); RDW 12.6 % (11.8-14.1); RDW-SD 38.5 fL; WBC 7.28 10^3/uL (4.4-10.8)
[2023-04-28 14:57] LABS: ALT 23 U/L (16-63); AST 16 U/L (15-37); Albumin 3.8 g/dL (3.4-5.0); Alkaline Phosphatase 96 U/L (46-116); Anion Gap 5.6 mmol/L (3-11); BUN 15 mg/dL (7-18); Bilirubin, Total 0.5 mg/dL (0.2-1.0); CO2 29.4 mmol/L (21.0-32.0); CREATININE 1.2 mg/dL (0.70-1.30); Calcium 9.1 mg/dL (8.5-10.1); Chloride 103 mmol/L (98-107); Estimated GFR 74.13 (mL/min/1.73m2); Glucose 94 mg/dL (74-106); Lipase 25 U/L (16-77); Potassium 3.5 mmol/L (3.5-5.1); Sodium 138 mmol/L (136-145); Total Protein 7.4 g/dL (6.4-8.2)
== END 2023-04-28 13:07 | disposition home or self-care (01) ==
LOC: LBO 13:06
PROVIDERS: PCP Nurse Practitioner Family; Visit Provider Nurse Practitioner Family
DX: R10.31 Right lower quadrant pain (principal); R10.32 Left lower quadrant pain
CPT/HCPCS: 36415; 80053; 83690; 85025

== ENCOUNTER 2025-06-02 08:27 | Outpatient (CLI) | payer BC, SELFPAY ==
[2025-06-02 14:09] LABS: Anion Gap 10.2 mmol/L (3-11); BUN 25 mg/dL (7-18); CO2 28.8 mmol/L (21.0-32.0); Calcium 9.0 mg/dL (8.5-10.1); Chloride 102 mmol/L (98-107); Cholesterol 190 mg/dL (<200); Glucose 83 mg/dL (74-106); HDL Cholesterol 39 mg/dL (>or=40); Potassium 3.7 mmol/L (3.5-5.1); Sodium 141 mmol/L (136-145)
[2025-06-02 14:16] LABS: Hemoglobin A1C 5.2 % (<5.7)
[2025-06-02 22:33] LABS: PSA, Screening 0.6 ng/mL (<=3.5)
[2025-06-02 23:14] LABS: HBs Antibody, Quant <3.1 mIU/mL (See Note); Hepatitis B Surface Antigen Negative (Negative)
== END 2025-06-02 08:28 | disposition home or self-care (01) ==
PROVIDERS: PCP Nurse Practitioner Family; Visit Provider Nurse Practitioner Family
DX: Z11.59 Encounter for screening for other viral diseases (principal); I10 Essential (primary) hypertension; Z12.5 Encounter for screening for malignant neoplasm of prostate
CPT/HCPCS: 36415; 80048; 80061; 84153; 86704; 86706; 87340; 83036